=== PATIENT | female | born 1975 | race Caucasian/White ===

== ENCOUNTER 2016-07-05 10:50 | Emergency (ER) | payer OTHER ==
[~2016-07-05] VITALS: Ht 152.4 cm; Wt 68.4 kg
[~2016-07-05 10:50] MED LIST: CLIN1CAP6 PO; LORT5TAB PO; Z.0.NO CURRENT MEDS
[2016-07-05 11:04] VITALS: BP 136/79; PULSE 90; RESP 16; TEMP 99.4; O2SAT 100
[2016-07-05 11:27] LABS: BLOOD, URINE LARGE (NEG); GLUCOSE,URINE NEG (NEG); KETONE, URINE NEG (NEG); NITRITE,URINE NEG (NEG)
[2016-07-05 11:36] LABS: METHOD OF COLLECTION CLEAN CATCH; SQUAMOUS EPITHELIAL CELL URINE > 8 /hpf (0-5); URINE COLOR YELLOW (YELLW/STRAW)
[2016-07-05 11:37] LABS: BACTERIA, URINE MANY /hpf; COMMENT (UR) CULTURE INDICATED; CULTURE IF INDICATED CULTURE INDICATED
[2016-07-05] MEDS ORDERED: ONDANSETRON HCL 4 MG/2 ML VIAL IVP ONE (12:15)
[2016-07-05] MEDS ORDERED: SODIUM CHLOR 0.9% 1000 ML INJ 1,000 ML IV ONE (12:15)
[2016-07-05] MEDS ORDERED: SODIUM CHLORIDE 0.9% FLUSH 5 ML FLUSH IVF PRN (12:15)
[2016-07-05] MEDS ORDERED: KETOROLAC TROMETHAMINE 30 MG/ML (IVP) VIAL IVP ONE (12:15)
[2016-07-05 12:30] VITALS: O2SAT 97
[2016-07-05 12:47] LABS: AUTOMATED NEUTROPHIL # 10.6 TH/MM3 (1.8-7.7); BASOPHIL % 0.2 % (0.0-2.0); EOSINOPHIL % 0.1 % (0.0-4.0); HEMATOCRIT 29.9 % (35.0-46.0); LYMPH % 12.6 % (9.0-44.0); LYMPHOCYTE # 1.6 TH/MM3 (1.0-4.8); MEAN CELL VOLUME 65.3 FL (80.0-100.0); MEAN CORPUSCULAR HEMOGLOBIN 19.8 PG (27.0-34.0); MEAN CORPUSCULAR HGB CONC 30.4 % (32.0-36.0); NEUT % 81.1 % (16.0-70.0); PLATELET COUNT 404 TH/MM3 (150-450); RED BLOOD COUNT 4.58 MIL/MM3 (4.00-5.30); RED CELL DISTRIBUTION WIDTH 17.6 % (11.6-17.2)
[2016-07-05 12:49] LABS: HEMO FLAGS AUTO DIFF
[2016-07-05 12:58] LABS: CHLORIDE 107 MEQ/L (98-107); POTASSIUM 3.6 MEQ/L (3.5-5.1); SODIUM (NA) 141 MEQ/L (136-145)
[2016-07-05 13:03] LABS: ANION GAP 10 MEQ/L (5-15); BICARBONATE 23.8 MEQ/L (21.0-32.0); BLOOD UREA NITROGEN 7 MG/DL (7-18)
[2016-07-05 13:06] LABS: ALT (GPT) 30 U/L (10-53); AST (GOT) 11 U/L (15-37); GLOMERULAR FILTRATION RATE 96 ML/MIN (>89)
[2016-07-05 13:08] LABS: TOTAL BILIRUBIN ADULT 0.5 MG/DL (0.2-1.0)
[2016-07-05 13:09] LABS: ALKALINE PHOSPHATASE 83 U/L (45-117)
[2016-07-05 13:41] LABS: SCAN/DIFF AUTO DIFF CONFIRMED
[2016-07-05] MEDS ORDERED: IOHEXOL 350 MG/ML 10 ML VIAL (for RAD DIAG) IV ONE (14:13)
--- NOTE | 2016-07-05 14:27 | RADHPO ---
EXAM DATE/TIME: 07/05/2016 14:05 [place] COMPARISON: No previous studies available for comparison. INDICATIONS : Left lower abdominal pain radiating to back. IV CONTRAST: 95 cc Omnipaque 350 (iohexol) IV ORAL CONTRAST: No oral contrast ingested. RADIATION DOSE: 12.84 CTDIvol (mGy) MEDICAL HISTORY : Diverticulitis. SURGICAL HISTORY : Tubal ligation. ENCOUNTER: Initial ACUITY: 2 days PAIN SCALE: 3/10 LOCATION: Left lower quadrant TECHNIQUE: Volumetric scanning of the abdomen and pelvis was performed. Using automated exposure control and ad justment of the mA and/or kV according to patient size, radiation dose was kept as low as reasonably achievable to obtain optimal diagnostic quality images. FINDINGS: LOWER LUNGS: The visualized lower lungs are clear. LIVER: Homogeneous density without lesion. There is no dilation of the biliary tree. No calcified gallston es. SPLEEN: Normal size without lesion. PANCREAS: Within normal limits. KIDNEYS: Normal in size and shape. There is no mass, stone or hydronephrosis. ADRENAL GLANDS: Within normal limits. VASCULAR: There is no aortic aneurysm. BOWEL/MESENTERY: The bowel gas pattern is within normal limits. There is stool throughout the colon. A few small diver ticula are noted along the descending and sigmoid colon. There is some focal mild inflammatory change s in the mesenteric fat surrounding the distal descending colon characteristic for some focal diverti culitis. No free fluid or loculated fluid collections are demonstrated to indicate an abscess. The ap pendix is unremarkable. No free air is demonstrated. ABDOMINAL WALL: Within normal limits. RETROPERITONEUM: There is no lymphadenopathy. BLADDER: No wall thickening or mass. REPRODUCTIVE: Within normal limits. INGUINAL: There is no lymphadenopathy or hernia. MUSCULOSKELETAL: Within normal limits for patient age. CONCLUSION: Mild left diverticulitis involving the distal descending colon. Hebert Hou MD on July 05, 2016 at 14:21 Board Certified Radiologist. This report was verified electronically.
--- NOTE | 2016-07-05 14:32 | PD ---
HPI Chief Complaint: Abdominal Pain Time Seen by Provider: 11:41 Travel History International Travel<30 days: No Contact w/Intl Traveler<30days: No Traveled to known affect area: No History of Present Illness HPI Patient is a 41-year-old female presents the emergency department with a history of left lower quadrant abdominal pain. Patient states she has a history of diverticulitis as well as endometriosis but this feels somewhat different than both of those symptoms. Patient denies any vomiting nausea diarrhea. States pain is cramping moderate intensity and nonradiating. States she did have some vaginal discharge as prior to the onset of her period which was yesterday. Denies any fever. States the pain is sharp and left lower quadrant without radiation. PFSH Past Medical History Anxiety: Yes (NO MEDS) Cancer: No Cardiovascular Problems: No Diminished Hearing: No Diverticulitis: Yes Endocrine: No Genitourinary: No Immune Disorder: No Medical other: Yes (MRSA) Musculoskeletal: No Neurologic: No Psychiatric: Yes Reproductive: Yes (ENDOMETRIOSIS) Respiratory: No Tetanus Vaccination: > 5 Years Influenza Vaccination: No ?: Not LMP: NOW : 5 Para: 3 : 2 Tubal Ligation: Yes Past Surgical History Gynecologic Surgery: Yes (TUBAL LIGATION) Other Surgery: Yes Social History Alcohol Use: Yes (3 DRINKS PER MONTH) Tobacco Use: No Substance Use: No Allergies-Medications (Allergen,Severity, Reaction): Coded Allergies: No Known Allergies (Verified , 07/05/16) Reported Meds & Prescriptions Reported Meds & Active Scripts Active Cipro (Ciprofloxacin HCl) 500 Mg Tab 500 Mg PO BID 7 Days Flagyl (Metronidazole) 500 Mg Tab 500 Mg PO BID 7 Days Zofran Odt (Ondansetron Odt) 4 Mg Tab 4 Mg SL Q6HR PRN Bentyl (Dicyclomine HCl) 20 Mg Tab 20 Mg PO QID PRN Review of Systems Except as stated in HPI: all other systems reviewed are Neg Physical Exam Narrative GENERAL: Well-developed well-nourished no apparent distress. SKIN: Warm and dry. HEAD: Atraumatic. Normocephalic. EYES: Pupils equal and round. No scleral icterus. No injection or drainage. ENT: No nasal bleeding or discharge. Mucous membranes pink and moist. NECK: Trachea midline. No JVD. CARDIOVASCULAR: Regular rate and rhythm. No murmur appreciated. RESPIRATORY: No accessory muscle use. Clear to auscultation. Breath sounds equal bilaterally. GASTROINTESTINAL: Abdomen soft, non-tender, nondistended. Hepatic and splenic margins not palpable. GENITOURINARY: Exam performed with female nurse press operator printing at all time, patient has minimal oozing from cervix consistent with her menstruation. No discharge or cervical motion tenderness no bimanual tenderness or fullness. MUSCULOSKELETAL: No obvious deformities. No clubbing. No cyanosis. No edema. NEUROLOGICAL: Awake and alert. No obvious cranial nerve deficits. Motor grossly within normal limits. Normal speech. PSYCHIATRIC: Appropriate mood and affect; insight and judgment normal. Data Data Last Documented VS Vital Signs Date Time Temp Pulse Resp B/P Pulse Ox O2 Delivery O2 Flow Rate FiO2 07/05/16 14:54 80 17 128/74 98 Room Air 07/05/16 11:04 99.4 Orders Urinalysis - C+S If Indicated (07/05/16 10:54) Ed Urine Pregnancytest Poc (07/05/16 10:54) Urine Culture (07/05/16 11:20) Complete Blood Count With Diff (07/05/16 12:07) Comprehensive Metabolic Panel (07/05/16 12:07) Lipase (07/05/16 12:07) Iv Access Insert/Monitor (07/05/16 12:07) Ecg Monitoring (07/05/16 12:07) Oximetry (07/05/16 12:07) Ondansetron Inj (Zofran Inj) (07/05/16 12:15) Sodium Chloride 0.9% Flush (Ns Flush) (07/05/16 12:15) Ketorolac Inj (Toradol Inj) (07/05/16 12:15) Sodium Chlor 0.9% 1000 Ml Inj (Ns 1000 M (07/05/16 12:15) Gc And Chlamydia Pcr (07/05/16 12:07) Wet Prep Profile (07/05/16 12:07) Ct Abd/Pel W Iv Contrast(Rout) (07/05/16 ) Iohexol 350 Inj (Omnipaque 350 Inj) (07/05/16 14:13) Dicyclomine (Bentyl) (07/05/16 15:00) Labs Laboratory Tests Test 07/05/16 07/05/16 07/05/16 11:20 12:30 13:30 Urine Collection Type CLEAN CATCH Urine Color YELLOW Urine Turbidity CLEAR Urine pH 6.0 Urine Specific [place] 1.020 Urine Protein 30 mg/dL Urine Glucose (UA) NEG mg/dL Urine Ketones NEG mg/dL Urine Occult Blood LARGE Urine Nitrite NEG Urine Bilirubin NEG Urine Leukocyte Esterase NEG Urine RBC 25-49 /hpf Urine WBC 9-14 /hpf Urine Squamous Epithelial > 8 /hpf Cells Urine Bacteria MANY /hpf Microscopic Urinalysis Comment CULTURE INDICATED Urine Collection Time 11:20 White Blood Count 13.0 TH/MM3 Red Blood Count 4.58 MIL/MM3 Hemoglobin 9.1 GM/DL Hematocrit 29.9 % Mean Corpuscular Volume 65.3 FL Mean Corpuscular Hemoglobin 19.8 PG Mean Corpuscular Hemoglobin 30.4 % Concent Red Cell Distribution Width 17.6 % Platelet Count 404 TH/MM3 Mean Platelet Volume 8.2 FL Neutrophils (%) (Auto) 81.1 % Lymphocytes (%) (Auto) 12.6 % Monocytes (%) (Auto) 6.0 % Eosinophils (%) (Auto) 0.1 % Basophils (%) (Auto) 0.2 % Neutrophils # (Auto) 10.6 TH/MM3 Lymphocytes # (Auto) 1.6 TH/MM3 Monocytes # (Auto) 0.8 TH/MM3 Eosinophils # (Auto) 0.0 TH/MM3 Basophils # (Auto) 0.0 TH/MM3 CBC Comment AUTO DIFF Differential Comment AUTO DIFF CONFIRMED Sodium Level 141 MEQ/L Potassium Level 3.6 MEQ/L Chloride Level 107 MEQ/L Carbon Dioxide Level 23.8 MEQ/L Anion Gap 10 MEQ/L Blood Urea Nitrogen 7 MG/DL Creatinine 0.68 MG/DL Estimat Glomerular Filtration 96 ML/MIN Rate Random Glucose 89 MG/DL Calcium Level 8.2 MG/DL Total Bilirubin 0.5 MG/DL Aspartate Amino Transf 11 U/L (AST/SGOT) Alanine Aminotransferase 30 U/L (ALT/SGPT) Alkaline Phosphatase 83 U/L Total Protein 7.1 GM/DL Albumin 3.2 GM/DL Lipase 73 U/L Clue Cells (Wet Prep) NONE SEEN Vaginal Trichomonas (Wet Prep) NONE SEEN Vaginal Yeast (Wet Prep) NONE SEEN Chlamydia trachomatis DNA NOT DETECTED (PCR) Neisseria gonorrhoeae DNA NOT DETECTED (PCR) [facility] Medical Decision Making Medical Screen Exam Complete: Yes Emergency Medical Condition: Yes Differential Diagnosis Diverticulitis, constipation, diverticular abscess, bowel perforation, appendicitis, ovarian torsion seems unlikely, STD. Narrative Course Patient was remembers department, she is so much better after Toradol. Labs are reassuring. Last 24 hours Impressions Abdomen/Pelvis CT 07/05/16 0000 Signed Impressions: Service Date/Time: Tuesday, July 05, 2016 14:05 - CONCLUSION: Mild left diverticulitis involving the distal descending colon. Hebert Hou MD Discussed results with the patient and some tympanic management. Several scripts written. She is stable for discharge at this time. Diagnosis Primary Impression: Diverticulitis Qualified Code: K57.32 - Diverticulitis of large intestine without perforation or abscess without bleeding Med/Other Pt SpecificInfo: Prescription(s) given Scripts Ciprofloxacin (Cipro)500 Mg [id number] Mg PO BID 7 Days Ref 0 Prov:Franko Will MD 07/05/16 Metronidazole (Flagyl)500 Mg [id number] Mg PO BID 7 Days Ref 0 Prov:Franko Will MD 07/05/16 Ondansetron Odt (Zofran Odt)4 Mg Tab4 Mg SL Q6HR PRN (Nausea/Vomiting) #30 TAB Ref 0 Prov:Franko Will MD 07/05/16 Dicyclomine (Bentyl)20 Mg Tab20 Mg PO QID PRN (ABDOMINAL CRAMPING) #30 TAB Ref 0 Prov:Franko Will MD 07/05/16 Disposition: 01 DISCHARGE HOME Condition: Stable Franko Will MD Jul 05, 2016 14:32
[2016-07-05] MEDS ORDERED: BENT20TA PO (14:44)
[2016-07-05] MEDS ORDERED: METR-1 PO (14:44)
[2016-07-05] MEDS ORDERED: CIPR-9 PO (14:44)
[2016-07-05] MEDS ORDERED: ZOFR4TAB3 SL (14:44)
[2016-07-05 14:54] VITALS: BP 128/74; PULSE 80; RESP 17; O2SAT 98
[2016-07-05] MEDS ORDERED: DICYCLOMINE HCL 10 MG CAP PO ONE (15:00)
[2016-07-05 18:30] LABS: CHLAMYDIA PCR NOT DETECTED (NOT DETECT); NEISSERIA PCR NOT DETECTED (NOT DETECT)
== END 2016-07-05 15:15 | disposition home or self-care (01) ==
LOC: PHED 10:50
DX: K57.32 Diverticulitis of large intestine without perforation or abscess without bleeding (principal); N89.8 Other specified noninflammatory disorders of vagina; N80.9 Endometriosis, unspecified
CPT/HCPCS: 74177; 80053; 81001; 83690; 84703; 85025; 87086; 87210; 87491; 87591; 96361; 96374; 96375; 99284; J1885; J2405; J7030; Q9967